=== PATIENT | female | born 1995 | race African-American/Black ===

== ENCOUNTER → 2017-02-13 | Outpatient (CLI) | payer OTHER ==
--- NOTE | 2017-02-13 16:41 | REP ---
Left foot four views: There is an intra-articular nondisplaced fracture of the base of the fifth digit distal phalange. There is no other fracture or dislocation. Mineralization joint spaces are otherwise are well. Signed by Daokta Joseph MD 02/13/2017 04:33 P
== END ==
LOC: M LRY 16:14
PROVIDERS: ATTEND Nurse Practitioner Family
DX: M79.675 Pain in left toe(s) (principal)
CPT/HCPCS: 73630; 90715; 96372; G0463; J1885

== ENCOUNTER → 2017-03-27 | Outpatient (CLI) | payer OTHER ==
--- NOTE | 2017-03-28 11:12 | REP ---
Clinical: Trauma. Technique: AP, lateral, bilateral oblique views of the right fifth digit. Findings: No acute fracture dislocation. Skeletal structures, joint spaces, surrounding soft tissues are normal. No subcutaneous emphysema or radiodense foreign body. Impression: No acute fracture dislocation. Signed by Raghavendra Osman MD 03/28/2017 08:44 A
== END ==
LOC: M LRY 20:09
PROVIDERS: ATTEND Nurse Practitioner Family
DX: S69.91XA Unspecified injury of right wrist, hand and finger(s), initial encounter (principal); X58.XXXA Exposure to other specified factors, initial encounter; Y92.89 Other specified places as the place of occurrence of the external cause; Y93.89 Activity, other specified; Y99.8 Other external cause status
CPT/HCPCS: 11730; 73140; G0463

== ENCOUNTER → 2017-06-23 | Outpatient (REF) | payer OTHER | LOC: M SFHCLERA 18:47 | PROVIDERS: ATTEND Nurse Practitioner Family | DX: J02.9 Acute pharyngitis, unspecified (principal) ==

== ENCOUNTER 2017-11-01 22:05 | Emergency (ER) | payer BC, OTHER ==
[2017-11-01 23:03] LABS: KETONE, URINE AUTO RFX NEGATIVE (NEGATIVE); LEUKOCYTE ESTERASE UR AUTO RFX NEGATIVE (NEGATIVE); MUCUS, URINE RFX SMALL (NEGATIVE); NITRITE, URINE AUTO RFX NEGATIVE (NEGATIVE); RBC, URINE AUTO RFX 2 /HPF (0-3); SPECIFIC GRAVITY UR AUTO RFX 1.025 (1.002-1.035); SQUAM EPITHELIAL CELL UR AURFX 3 /HPF (0-6); WBC, URINE AUTO RFX 1 /HPF (0-3)
[2017-11-01] MEDS: NS 1,000 ML IV ×2 (23:03)
[2017-11-01 23:33] LABS: BASO % 0.6 % (0.0-1.0); EOS # 0.2 10^3/uL (0.0-0.50); EOS % 3.1 % (0.0-3.0); HEMATOCRIT 34.4 % (36.0-47.0); IMMATURE GRANULOCYTE % 0.2 % (0-3.0); LYMPH # 1.8 10^3/uL (1.5-6.5); LYMPH % 35.5 % (24.0-44.0); MEAN CORPUSCULAR HEMOGLOBIN 27.2 pg (27.0-33.0); MEAN CORPUSCULAR VOLUME 84.9 fl (80.0-96.0); MONO # 0.3 10^3/uL (0.0-0.8); MONO % 6.6 % (0.0-5.0); NEUTROPHILS # 2.8 10^3/uL (1.8-7.7); PLATELET COUNT, AUTOMATED 290 10^3/uL (150-450); RED BLOOD COUNT 4.05 10^6/uL (4.00-5.40); RED CELL DISTRIBUTION WIDTH 13.4 % (11.5-14.5); WHITE BLOOD COUNT 5.1 10^3/uL (4.0-10.0)
[2017-11-01 23:47] LABS: CONTROL LINE HCG INT CTR LINE PRESENT; HCG, SERUM QUALITATIVE NEGATIVE (NEGATIVE)
[2017-11-01 23:48] LABS: INR 1.05; PROTHROMBIN TIME 13.8 SECONDS (12.4-14.5)
[2017-11-01 23:51] LABS: ANION GAP 5 MEQ/L (8-16); BLOOD UREA NITROGEN 11 MG/DL (7-18); CALCIUM LEVEL 8.8 MG/DL (8.5-10.1); CARBON DIOXIDE LEVEL 27 MEQ/L (21-32); CHLORIDE LEVEL 104 MEQ/L (98-107); CREATININE FOR GFR 0.68 MG/DL (0.55-1.30); GLOMERULAR FILTRATION RATE > 60.0 (>60); GLUCOSE, FASTING 77 MG/DL (70-100); POTASSIUM SERUM 3.6 MEQ/L (3.5-5.1); SODIUM LEVEL 136 MEQ/L (136-145)
== END 2017-11-02 00:04 | disposition home or self-care (01) ==
LOC: M ED 11-02 00:04
DX: E28.2 Polycystic ovarian syndrome (principal); N84.0 Polyp of corpus uteri; Z79.899 Other long term (current) drug therapy
CPT/HCPCS: 76856

== ENCOUNTER → 2018-03-27 | Outpatient (REF) | payer OTHER | LOC: M SFHCLERA 14:48 | DX: J02.9 Acute pharyngitis, unspecified (principal) ==

== ENCOUNTER 2018-07-11 18:38 | Emergency (ER) | payer BC, OTHER, SELFPAY ==
[~2018-07-11] VITALS: Ht 165.1 cm; Wt 113.6 kg
[~2018-07-11 18:38] MED LIST: METF500T4 PO
[2018-07-11 19:26] LABS: BASO % 0.4 % (0.0-1.0); EOS # 0.2 10^3/uL (0.0-0.50); EOS % 1.9 % (0.0-3.0); HEMATOCRIT 36.6 % (36.0-47.0); HEMOGLOBIN 11.9 g/dl (12.0-15.5); LYMPH # 1.8 10^3/uL (1.5-6.5); LYMPH % 22.3 % (24.0-44.0); MEAN CORPUSCULAR HEMOGLOBIN 27.8 pg (27.0-33.0); MEAN CORPUSCULAR HGB CONC 32.5 g/dl (32.0-36.5); MEAN CORPUSCULAR VOLUME 85.5 fl (80.0-96.0); MONO # 0.6 10^3/uL (0.0-0.8); NEUTROPHILS # 5.6 10^3/uL (1.8-7.7); NEUTROPHILS % 68.2 % (36.0-66.0); PLATELET COUNT, AUTOMATED 288 10^3/uL (150-450); RED BLOOD COUNT 4.28 10^6/uL (4.00-5.40); WHITE BLOOD COUNT 8.3 10^3/uL (4.0-10.0)
--- NOTE | 2018-07-11 20:21 | REPVR ---
EXAM: US First Trimester, Transabdominal and US , Transvaginal EXAM DATE/TIME: 07/11/2018 7:33 PM CLINICAL HISTORY: 23 years old, female; Pain; complicated by abdominal or pelvic pain; Lower; First trimester; Gestational age or lmp: 4w 6d; ; Additional info: Vaginal bleeding as per order but no vaginal bleeding per patient just pain TECHNIQUE: Real-time transabdominal obstetrical ultrasound of the maternal pelvis and a first trimester , less than 14 weeks 0 days, with image documentation. Transvaginal imaging was used for better evaluation of the fetus and adnexa. COMPARISON: No relevant prior studies available. FINDINGS: GESTATION: Gestation: Gestational sac demonstrated without sac size 3.0 mm. No pole demonstrated. No yolk sac demonstrated. Heart rate: Not detected. BIOMETRY: Estimated gestational age: Gestational age based on sac size is 5 weeks 1 day this patient would be 4 weeks 6 days using LMP of 06/07/2018. MATERNAL: Uterus: Uterus measures 8.8 x 4 x 1.5 cm. Cervix: Unremarkable. Right adnexa: Right ovary is enlarged measuring 7.1 x 5.3 x 6 cm. Complex cyst measuring 2.5 x 2.3 x 2.9 cm demonstrated consistent with a hemorrhagic cyst. Simple cyst measures 4.3 x 3.6 x 4.6 cm. RI 0.53. Left adnexa: Unremarkable. RI 0.56 Intraperitoneal: Free fluid as well as an apparent lucent mass mass versus bowel measuring 2.1 x 4.4 x 4.8 cm. Finding concerning for hemorrhagic fluid. IMPRESSION: Small sac demonstrated in the uterus without evidence of yolk sac or pole or cardiac activity at this time. Complex fluid in the cul-de-sac is worrisome for possible hemorrhage which could either be related to the hemorrhagic cyst in the right ovary although ectopic is not excluded. Correlation with beta hCG levels and serial ultrasounds suggested in order to exclude ectopic and to document the presence of a pole and cardiac activity. Electronically signed by: Ryan Cooper On 07/11/2018 20:20:49 PM
[2018-07-11] MEDS ORDERED: ACET500T15 PO (21:32)
[2018-07-11 21:42] VITALS: BP 121/74
[2018-07-11 22:31] LABS: CHLAMYDIA DNA AMPLIFICATION NEGATIVE (NEGATIVE); GC DNA AMPLIFICATION NEGATIVE (NEGATIVE)
== END 2018-07-11 21:43 | disposition home or self-care (01) ==
LOC: M ED 18:38
DX: O34.81 Maternal care for other abnormalities of pelvic organs, first trimester (principal); Z32.01 Encounter for pregnancy test, result positive; O24.111 Pre-existing type 2 diabetes mellitus, in pregnancy, first trimester; Z3A.01 Less than 8 weeks gestation of pregnancy; Z80.41 Family history of malignant neoplasm of ovary; Z79.84 Long term (current) use of oral hypoglycemic drugs; Z91.018 Allergy to other foods

== ENCOUNTER → 2018-07-13 | Outpatient (CLI) | payer BC, OTHER, SELFPAY ==
[~2018-07-13] MED LIST changes: +ACET1TAB55 PO; +ACET500T15 PO; +OSEL75CA PO; +ZOFR4TAB14 PO
== END ==
LOC: M LAB 12:53
PROVIDERS: ATTEND Nurse Practitioner Family
DX: Z36.89 Encounter for other specified antenatal screening (principal)

== ENCOUNTER 2018-07-26 16:22 | Emergency (ER) | payer OTHER, SELFPAY ==
[~2018-07-26] VITALS: Ht 165.1 cm; Wt 113.6 kg
[~2018-07-26 16:22] MED LIST changes: -ACET1TAB55 PO; -OSEL75CA PO; -ZOFR4TAB14 PO
[2018-07-26 17:24] LABS: BASO % 0.4 % (0.0-1.0); EOS # 0.1 10^3/uL (0.0-0.50); HEMATOCRIT 35.8 % (36.0-47.0); HEMOGLOBIN 11.8 g/dl (12.0-15.5); LYMPH # 0.5 10^3/uL (1.5-6.5); LYMPH % 6.2 % (24.0-44.0); MEAN CORPUSCULAR HEMOGLOBIN 27.8 pg (27.0-33.0); MEAN CORPUSCULAR VOLUME 84.2 fl (80.0-96.0); MONO # 0.5 10^3/uL (0.0-0.8); MONO % 6.8 % (0.0-5.0); NEUTROPHILS # 6.2 10^3/uL (1.8-7.7); NEUTROPHILS % 85.3 % (36.0-66.0); PLATELET COUNT, AUTOMATED 265 10^3/uL (150-450); RED BLOOD COUNT 4.25 10^6/uL (4.00-5.40); WHITE BLOOD COUNT 7.2 10^3/uL (4.0-10.0)
[2018-07-26 17:48] LABS: BLOOD UREA NITROGEN 8 MG/DL (7-18); CARBON DIOXIDE LEVEL 22 MEQ/L (21-32); CHLORIDE LEVEL 106 MEQ/L (98-107); CREATININE FOR GFR 0.75 MG/DL (0.55-1.30); GLOMERULAR FILTRATION RATE > 60.0 (>60); GLUCOSE, FASTING 90 MG/DL (70-100); SODIUM LEVEL 136 MEQ/L (136-145)
[2018-07-26 18:53] VITALS: BP 124/69
--- NOTE | 2018-07-26 19:55 | REPVR ---
EXAM: US First Trimester, Transabdominal EXAM DATE/TIME: 07/26/2018 6:45 PM CLINICAL HISTORY: 23 years old, female; Pain; complicated by abdominal or pelvic pain; Right lower quadrant; First trimester; Gestational age or lmp: 7 weeks 0 days; ; Additional info: Pelvic pain, 7 wks TECHNIQUE: Real-time transabdominal obstetrical ultrasound of the maternal pelvis and a first trimester , less than 14 weeks 0 days, with image documentation. COMPARISON: 1ST TRIMESTER US 07/11/2018 7:21 PM FINDINGS: GESTATION: Gestation: TransabdominalIy, there is a single intrauterine gestational sac. There is a pole with a crown-rump length measurement of 0.96 cm for a menstrual age of 7 weeks and 0 days. Endovaginally, there is a single intrauterine gestational sac with a pole measuring 1.01 cm for a menstrual age of 7 weeks and 1 day. There is yolk sac present. Heart rate: Cardiac activity is noted at a rate of 160 beats per minute. Placenta: Unremarkable. No subchorionic bleed. MATERNAL: Cervix: Unremarkable. Right adnexa: On transabdominal exam, the right ovary measures 7.2 x 5.9 x 6.4 cm and contains several follicles.The largest measures 5.5 x 4.8 x 5.1 cm. Endovaginally, the right ovary measures 8.5 x 5.6 x 6.9 cm and contains 2 dominant follicles.The largest measures 4.9 cm and is simple. The second measures 2.9 cm in diameter and contains a hypervascular rim suggesting a hemorrhagic corpus luteum cyst. Left adnexa: Transabdominally, the left ovary is not seen as a separate structure. Endovaginally, the left ovary measures 3.7 x 2.7 x 2.3 cm. Blood flow seen in the left ovary on color Doppler and pulse Doppler examination.. Intraperitoneal: Endovaginally, a small moderate free fluid is seen in the posterior cul-de-sac. IMPRESSION: 1. Single live intrauterine with an estimated menstrual age of 7 weeks and 0 days (range 6 weeks and 3 days-7 weeks and 4 days). Expected date of delivery 03/14/2019. 2.Compared to the previous ultrasound there's evidence of clot retraction in the corpus luteum cyst described above. This is evidence of a hemorrhagic cyst. Electronically signed by: Annalisa Jordan On 07/26/2018 19:55:44 PM
[2018-07-27] MEDS ORDERED: ACET1TAB55 PO (22:22)
[2018-07-27] MEDS ORDERED: OSEL75CA PO (22:22)
[2018-07-27] MEDS ORDERED: ZOFR4TAB14 PO (22:22)
== END 2018-07-26 19:52 | disposition home or self-care (01) ==
LOC: M ED 16:22
DX: O21.9 Vomiting of pregnancy, unspecified (principal); O34.81 Maternal care for other abnormalities of pelvic organs, first trimester; N83.201 Unspecified ovarian cyst, right side; Z3A.01 Less than 8 weeks gestation of pregnancy; Z87.891 Personal history of nicotine dependence

== ENCOUNTER 2018-07-27 20:47 | Emergency (ER) | payer OTHER, SELFPAY ==
[~2018-07-27] VITALS: Ht 165.1 cm; Wt 113.6 kg
[2018-07-27 21:49] LABS: INFLUENZA B AMPLIFICATION NEGATIVE (NEGATIVE)
[2018-07-27] MEDS ORDERED: OSELTAMIVIR PHOSPHATE 75 MG CAP (TAMIFLU) PO ONE (22:15)
[2018-07-27] MEDS ORDERED: ACETAMINOPHEN TAB 650MG DOSE (2X325MG) PO ONE (22:15)
[2018-07-27] MEDS ORDERED: ONDANSETRON 4 MG ORAL DISINTEGRATING TAB (Q0162 PER 1MG) PO ONE (22:15)
[2018-07-27] MEDS ORDERED: OSEL75CA PO (22:22)
[2018-07-27] MEDS ORDERED: ZOFR4TAB14 PO (22:22)
[2018-07-27] MEDS ORDERED: ACET1TAB55 PO (22:22)
[2018-07-27] MEDS ORDERED: NS 1,000 ML IV ONE (22:30)
[2018-07-27 23:30] VITALS: BP 102/52
[2018-08-06 15:49] LABS: INFLUENZA A AMPLIFICATION POSITIVE (NEGATIVE)
== END 2018-07-28 00:10 | disposition home or self-care (01) ==
LOC: M ED 20:47
DX: J09.X2 Influenza due to identified novel influenza A virus with other respiratory manifestations (principal)
CPT/HCPCS: 87502; 99284; Q0162

== ENCOUNTER 2018-08-17 12:38 | Emergency (ER) | payer BC, OTHER ==
[~2018-08-17] VITALS: Ht 165.1 cm; Wt 48.1 kg
[2018-08-17 12:38] VITALS: BP 137/76
[~2018-08-17 12:38] MED LIST changes: +ACET1TAB55 PO; +OSEL75CA PO; +ZOFR4TAB14 PO
[2018-08-17 13:57] LABS: BASO % 0.4 % (0.0-1.0); EOS # 0.1 10^3/uL (0.0-0.50); EOS % 1.3 % (0.0-3.0); HEMATOCRIT 32.3 % (36.0-47.0); HEMOGLOBIN 10.8 g/dl (12.0-15.5); LYMPH # 1.3 10^3/uL (1.5-6.5); LYMPH % 16.8 % (24.0-44.0); MEAN CORPUSCULAR HEMOGLOBIN 27.5 pg (27.0-33.0); MEAN CORPUSCULAR HGB CONC 33.4 g/dl (32.0-36.5); MEAN CORPUSCULAR VOLUME 82.2 fl (80.0-96.0); MONO # 0.6 10^3/uL (0.0-0.8); MONO % 7.5 % (0.0-5.0); NEUTROPHILS # 5.6 10^3/uL (1.8-7.7); NEUTROPHILS % 73.7 % (36.0-66.0); PLATELET COUNT, AUTOMATED 242 10^3/uL (150-450); RED BLOOD COUNT 3.93 10^6/uL (4.00-5.40); WHITE BLOOD COUNT 7.6 10^3/uL (4.0-10.0)
--- NOTE | 2018-08-17 14:17 | REP ---
Clinical: Dating and viability. Technique: Transabdominal first trimester obstetrical ultrasound with color Doppler evaluation. Findings: Single live early intrauterine is appreciated. Gestational sac with yolk sac and pole identified. [place]-rump length of 34 mm corresponds to 10 weeks 2 days gestational age with estimated date of delivery 03/13/2019 . heart rate equals 168 beats per minute. No gross abnormalities are identified. Left maternal ovary is normal in appearance and vascularity without torsion measuring 3.7 x 3.0 x 2.4 cm; RI 0.51. Right maternal ovary measures 8.7 x 6.1 x 7.9 cm and includes two cysts measuring approximately 5.4 and 3.1 cm maximal diameter each and without evidence for torsion; RI 0.34. Impression: 1. Single live early intrauterine at 10 weeks 2 days gestational age. Complete anatomical assessment should be performed and 19-20 weeks. 2. Two maternal right ovarian cysts one of which likely represents corpus luteum. No evidence for ovarian torsion. Electronically Signed by Raghavendra Osman MD 08/17/2018 02:09 P
== END 2018-08-17 15:21 | disposition home or self-care (01) ==
LOC: M ED 12:38
DX: O20.8 Other hemorrhage in early pregnancy (principal); O34.81 Maternal care for other abnormalities of pelvic organs, first trimester; Z3A.10 10 weeks gestation of pregnancy; Z91.018 Allergy to other foods

== ENCOUNTER 2018-10-06 16:00 | Emergency (ER) | payer BC, OTHER ==
[~2018-10-06] VITALS: Ht 165.1 cm; Wt 102.7 kg
[2018-10-06] MEDS ORDERED: FIOR1CAP PO (16:06)
[2018-10-06] MEDS ORDERED: PRENTAB55 (16:06)
[2018-10-06 16:53] LABS: BASO % 0.4 % (0.0-1.0); EOS # 0.3 10^3/uL (0.0-0.50); EOS % 3.4 % (0.0-3.0); HEMATOCRIT 30.5 % (36.0-47.0); HEMOGLOBIN 10.1 g/dl (12.0-15.5); LYMPH # 1.2 10^3/uL (1.5-6.5); LYMPH % 14.3 % (24.0-44.0); MEAN CORPUSCULAR HEMOGLOBIN 28.3 pg (27.0-33.0); MEAN CORPUSCULAR HGB CONC 33.1 g/dl (32.0-36.5); MEAN CORPUSCULAR VOLUME 85.4 fl (80.0-96.0); MONO # 0.6 10^3/uL (0.0-0.8); MONO % 6.8 % (0.0-5.0); NEUTROPHILS # 6.4 10^3/uL (1.8-7.7); NEUTROPHILS % 74.6 % (36.0-66.0); PLATELET COUNT, AUTOMATED 248 10^3/uL (150-450); RED BLOOD COUNT 3.57 10^6/uL (4.00-5.40); WHITE BLOOD COUNT 8.6 10^3/uL (4.0-10.0)
[2018-10-06 17:14] LABS: BLOOD UREA NITROGEN 6 MG/DL (7-18); CALCIUM LEVEL 8.6 MG/DL (8.5-10.1); CARBON DIOXIDE LEVEL 22 MEQ/L (21-32); CHLORIDE LEVEL 109 MEQ/L (98-107); CREATININE FOR GFR 0.46 MG/DL (0.55-1.30); GLOMERULAR FILTRATION RATE > 60.0 (>60); GLUCOSE, FASTING 75 MG/DL (70-100); SODIUM LEVEL 138 MEQ/L (136-145)
--- NOTE | 2018-10-06 17:51 | REP ---
OB ULTRASOUND: Real-time sonographic evaluation of the gravid uterus is performed. There is a single living intrauterine gestation. The estimated gestational age is 17 weeks 2 days based on LMP with EDC 03/14/2019. Today's measurements indicate appropriate growth. BPD 35 mm = 16 weeks 5 days, at the 27th percentile. HC 131 mm = 16 weeks 5 days, at the 29th percentile. AC 109 mm = 16 weeks 5 days, at the 36th percentile. Femur length 27 mm = 18 weeks 1 days, at the 72nd percentile. HC/AC ratio 1.16 within normal range. Estimated weight 191 grams, 48th percentile. Cervix is closed measures 4.7 cm in length. heart rate 149 beats per minute. Visualized anatomy today includes lateral ventricles, stomach, cord insertion and three vessel cord. position is breech. Placenta is posterior with no abruption or previa, amniotic fluid within normal limits. Cystic structure of the right ovary measures 2.9 cm and may represent a corpus luteum. Electronically Signed by Dakota Zavala MD 10/07/2018 01:30 P
[2018-10-06 17:52] VITALS: BP 125/59
== END 2018-10-06 17:54 | disposition home or self-care (01) ==
LOC: M ED 16:00
DX: O26.892 Other specified pregnancy related conditions, second trimester (principal); R10.2 Pelvic and perineal pain; O99.282 Endocrine, nutritional and metabolic diseases complicating pregnancy, second trimester; E86.0 Dehydration; Z3A.17 17 weeks gestation of pregnancy; Z91.018 Allergy to other foods

== ENCOUNTER → 2018-10-21 | Outpatient (CLI) | payer BC, OTHER ==
[~2018-10-21] MED LIST changes: +FIOR1CAP PO; +IBUP-1114 PO; +MAPA500T2 PO; +PRENTAB55
--- NOTE | 2018-10-21 13:45 | ECGEPIP ---
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
== END ==
LOC: M EKG 13:20
PROVIDERS: ATTEND Midwife
DX: E11.9 Type 2 diabetes mellitus without complications (principal); O24.12 Pre-existing type 2 diabetes mellitus, in childbirth; Z3A.18 18 weeks gestation of pregnancy

== ENCOUNTER 2018-10-27 19:25 | Inpatient (IN) | payer BC, OTHER ==
[~2018-10-27] VITALS: Ht 165.1 cm; Wt 102.6 kg
[~2018-10-27 19:25] MED LIST changes: -IBUP-1114 PO; -MAPA500T2 PO
[2018-10-27 20:27] LABS: APPEARANCE, URINE HAZY (CLEAR); BACTERIA, URINE AUTO 1+ (NEGATIVE); BILIRUBIN, URINE AUTO NEGATIVE (NEGATIVE); BLOOD, URINE BLOOD NEGATIVE (NEGATIVE); COLOR, URINE YELLOW (YELLOW); GLUCOSE, URINE (UA) AUTO NEGATIVE (NEGATIVE); KETONE, URINE AUTO 2+ mg/dL (NEGATIVE); LEUKOCYTE ESTERASE, URINE AUTO TRACE (NEGATIVE); MUCUS, URINE LARGE (NEGATIVE); NITRITE, URINE AUTO NEGATIVE (NEGATIVE); PROTEIN, URINE AUTO 1+ mg/dL (NEGATIVE); RBC, URINE AUTO 0 /HPF (0-3); SQUAMOUS EPITHELIAL CELL UR AU 2 /HPF (0-6); UROBILINOGEN, URINE AUTO 0.2 mg/dL (0.0-2.0); WBC, URINE AUTO 6 /HPF (0-3)
[2018-10-27] MEDS ORDERED: LR 1,000 ML IV SCH (22:08)
[2018-10-27] MEDS ORDERED: LACTATED RINGER'S 1000 ML IV STA (22:08)
[2018-10-27] MEDS ORDERED: BUTORPHANOL 2 MG/ML INJ (J0595) IV PRN (22:15)
[2018-10-27] MEDS ORDERED: PROMETHAZINE INJ 25 MG/ML VIAL (J2550) IV PRN (22:15)
--- NOTE | 2018-10-27 22:50 | HPEPDOC ---
Obstetrical History & Physical General Date of Admission History of Present Illness Called by MAJ Dmitriy CNM with report of previable labor and a bulging amniotic sac in the vagina in regards to a patient she had evaluated on L&D. I presented to L&D to evaluate the patient. Ms. Mallory is a 23 yo at 20+2 weeks gestation by LMP of 07Jun2018 c/w 8+4 week US on 06Aug2018 presented to L&D with the complaint of vaginal discharge, spotting, and rhythmic abdominal pain starting yesterday and worsening throughout the day. Her is complicated by Class B DM (not on medication, just recently diagnosed by abnormal early glucose screening in ) and obesity. 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: Human papillomavirus(HPV) (History of HPV) Past Medical History Medical History Obesity Class B DM Surgical History: Dilatation and Curettage (For uterine polyps) Family History Significant Family History: No pertinent family hx Family History Noncontributory Social History Marital Status: Family situation: Spouse/partner home Psychosocial History: No pertinent psych hx * Smoker: non-smoker Alcohol: Denies Drugs: denies Imunizations Tdap status: needs Influenza Status: needs Allergies Coded Allergies: Patrick (Verified Allergy, Intermediate, rash, 11/01/17) Medications Scheduled Butalb/Acetaminophen/Caffeine (Fioricet 50-300-40 mg Capsule) 1 Cap Cap, 1 CAP PO BIDP Miscellaneous Medications [id number]/Iron Fum/Folic/Docusate ( 19 Tablet) 1 Tab Tab Physical Examination Physical Examination Chaperoned by Collette Chavez GENERAL: Alert and oriented times three. ABDOMEN: Gravid and non-tender to touch. Contractions felt with palpation. No fundal tenderness between contractions. FETUS: Is vertex (VTX) bedside TAUS EXTREMITIES: No edema. Speculum exam: Normal external female genitalia. Speculum placed into the vagina. Cervix with advanced dilation and effacement. Bulging amniotic sac through the cervix. Swabs obtained for cultures. No digital exam done. Bedside TAUS: Viable SIUP. +FCA measured in the 140s. Cephalic presenting . Posterior placenta. No previa. Laboratory Data 24H [facility] Laboratory Tests 2 10/27/18 19:53: Urine Appearance HAZY, Urine Color YELLOW, Urine pH 5.0, Urine Specific [place] 1.030, Urine Protein 1+H, Urine Glucose (UA) NEGATIVE, Urine Ketones 2+H, Urine Urobilinogen 0.2, Urine Bilirubin NEGATIVE, Urine Leukocyte Esterase TRACEH, Urine Blood NEGATIVE, Urine Nitrite NEGATIVE, Urine WBC (Auto) 6H, Urine RBC (Auto) 0, Urine Hyaline Casts (Auto) 0, Urine Bacteria (Auto) 1+H, Urine Squamous Epithelial Cells 2, Urine Mucus (Auto) LARGE, Urine Sperm (Auto) Microbiology Microbiology 10/27/18 Urine Culture, Received Pending Urine Culture: Contaminated Pertinent Laboratoy Data Blood Type: A+ RBC Antibody Screen: Negative HIV: Negative Hepatitis B: Negative Hepatitis C: Unknown Rapid Plasma Reagin: Nonreactive Rubella: Immune Varicella: Nonreactive Chlamydia/Gonorrhea: Negative Group B Streptococcus: Negative Quad Screen Test: Unknown Cystic Fibrosis: Unknown Glucose Tolerance Test: 179 (early 1hr 179, abnormal 3hr with two values >200 rling in for pre exisiting DM) Anatomy Ultrasound Ultrasound Date: Oct 26, 2018 Placenta Location: Posterior Normal Anatomy: Yes (Normal anatomy but suboptimal view of bladder and cord insertion site) Placenta Previa: No Steroid Therapy Steroid Therapy: No Vaginal Examination Dilation: 5 cm (Visibly 5cm dilated and 100% effaced. No digital exam performed.) Effacement: 100% Station: -1 Cervical Consistency: Soft (Appears soft and anterior ) Cervical Position: Anterior Presentation: Cephalic presentation (Cephalic by TAUS) Position: Vertex (occiput) Assessment Heart Rate (FHR): 140 Tocometer Contractions: Yes Frequency: regular Duration: less than 60 seconds Strength: palpated as moderate Assessment/Plan Assessment 23 yo at 20+2 weeks gestation presents in previable labor. Plan Admit and Apply IV fluids. I had a long discussion with Ms. [place] regarding the poor prognosis of active labor at this gestational age. I discussed with her that no interventions can be done to improve the prognosis. She is likely in fulminant labor ( anatomy scan measured maternal cervix 4.4cm just yesterday) and given her bulging membranes, completely effaced cervix, and contractions, she would not be a candidate for cerclage placement. I discussed with her the plan moving forward will be expectant management and pain control. Should her fetus in utero, or if she develops signs of life threatening infection, I would recommend proceeding with augmentation for delivery. I discussed with her that her baby may be alive for a short time after delivery, but that it would not survive. She also understands that no resuscitative measures will be performed, only comfort care. All patient questions were answered and she appears to be understand. IV analgesia PRN. Consider Epidural as desired. DO LEXUS Lopez CHRISTOPHER J. DO Oct 27, 2018 22:50
[2018-10-27 23:13] LABS: BASO % 0.1 % (0.0-1.0); EOS % 0.1 % (0.0-3.0); HEMATOCRIT 30.3 % (36.0-47.0); HEMOGLOBIN 9.9 g/dl (12.0-15.5); LYMPH # 0.6 10^3/uL (1.5-6.5); LYMPH % 4.3 % (24.0-44.0); MEAN CORPUSCULAR HEMOGLOBIN 28.6 pg (27.0-33.0); MEAN CORPUSCULAR HGB CONC 32.7 g/dl (32.0-36.5); MEAN CORPUSCULAR VOLUME 87.6 fl (80.0-96.0); MONO # 0.7 10^3/uL (0.0-0.8); MONO % 4.6 % (0.0-5.0); NEUTROPHILS # 13.4 10^3/uL (1.8-7.7); NEUTROPHILS % 90.5 % (36.0-66.0); PLATELET COUNT, AUTOMATED 223 10^3/uL (150-450); RED BLOOD COUNT 3.46 10^6/uL (4.00-5.40); WHITE BLOOD COUNT 14.8 10^3/uL (4.0-10.0)
[2018-10-27] MEDS ORDERED: OXYTOCIN 30 UNITS IN 0.9% NaCl 500ML IV BAG (J2590) As Ordered ONE (23:28)
[2018-10-27] MEDS ORDERED: MORPHINE 10 MG/ML 1ML VIAL (J2270) As Ordered ONE (23:48)
[2018-10-28] VITALS (7 sets, daily range): BP systolic 99–131; BP diastolic 55–70
[2018-10-28] MEDS ORDERED: miSOPROStol 200 MCG TAB (S0191) PR ONE
[2018-10-28] MEDS ORDERED: MORPHINE 10 MG/ML 1ML VIAL (J2270) IV ONE
[2018-10-28] MEDS ORDERED: OXYTOCIN DRIP 30 UNITS in APPROPRIATE DILUENT 1 EA IV SCH (00:02)
[2018-10-28] MEDS ORDERED: DIBUCAINE 1% OINTMENT 30GM TOP PRN (00:15)
[2018-10-28] MEDS ORDERED: IBUPROFEN 800 MG TAB PO PRN (00:15)
[2018-10-28] MEDS ORDERED: ACETAMINOPHEN 500 MG TAB PO PRN (00:15)
[2018-10-28] MEDS ORDERED: MEASLES,MUMPS,RUBELLA VACCINE INJ (MMR-II) (90707) SC SCH (00:15)
[2018-10-28] MEDS ORDERED: ONDANSETRON 4MG/2ML VIAL (J2405) IV PRN (00:15)
[2018-10-28] MEDS ORDERED: RHOGAM 300 MCG (1500 IU) INJ (J2790) IM SCH (00:15)
[2018-10-28] MEDS ORDERED: DOCUSATE SODIUM 100 MG CAP PO PRN (00:15)
--- NOTE | 2018-10-28 00:19 | DNPDOC ---
[facility] Delivery Note Delivery Note DATE OF DELIVERY: [id number] just before midnight PREDELIVERY DIAGNOSIS: 20+2 weeks gestation and previable labor POST DELIVERY DIAGNOSIS: Delivered. Placental abruption. 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 Castellano ANESTHESIA: IV stadol and morphine. ESTIMATED BLOOD LOSS: 300 mL. FINDINGS: Grossly normal appearing female fetus other than erythema/bruising noted along skull. Low heart rate continued after delivery. Placenta macerated and an abruption was identified. DELIVERY SUMMARY: Ms. Mallory was admitted in previable, fulminant labor. She received IV stadol for analgesia. Shortly after admission her amniotic sac ruptured spontaneously. Soon thereafter, she was feeling pelvic pressure and an urge to push. On exam the head was in the vagina. She was prepped for delivery. She pushed well and the infant delivered after two sets of pushes. presentation was cephalic, and after head delivery the rest of the body followed immediately. tone was present with delivery along with a low heart rate. I cut the cord and wrapped the baby in cloths. The awaiting baby nurse then took the baby as mother and father were not yet ready to hold. The umbilical cord avulsed after delivery and the placenta was detached but caught in the lower uterine segment. I administered 10mg IV morphine and 600mcg cytotec MA. I then manually extracted the placenta from the lower uterine segment completely intact. Pitocin was then administered IV bolus. The uterine fundus was firm and bleeding was minimal. Inspection of the vagina and perineum revealed no lacerations. Sponge and instrument counts were correct X2. Mother stable when I left the room. Will give dose of ancef for uterine sweep. DO LEXUS Lopez CHRISTOPHER J. DO Oct 28, 2018 00:19
[2018-10-28] MEDS ORDERED: PRENATAL VITAMINS CHEWABLE TABLET PO SCH (09:00)
[2018-10-28] MEDS ORDERED: IBUP-1114 PO (17:27)
[2018-10-28] MEDS ORDERED: MAPA500T2 PO (17:27)
== END 2018-10-28 18:30 | disposition home or self-care (01) | DRG 541 ==
LOC: M LDO 19:25 → M LDI 22:51
PROVIDERS: ADMIT Obstetrics & Gynecology; ATTEND Midwife
PROC: 10E0XZZ Delivery of Products of Conception, External Approach (ICD-10-PCS; principal; 2018-10-27)
PROC: 10D17Z9 Manual Extraction of Products of Conception, Retained, Via Natural or Artificial Opening (ICD-10-PCS; 2018-10-27)
DX: O45.8X2 Other premature separation of placenta, second trimester (principal); Z37.0 Single live birth; Z3A.20 20 weeks gestation of pregnancy; O69.89X0 Labor and delivery complicated by other cord complications, not applicable or unspecified; O73.0 Retained placenta without hemorrhage; O24.812 Other pre-existing diabetes mellitus in pregnancy, second trimester

== ENCOUNTER → 2018-12-01 | Outpatient (REF) | payer BC, OTHER ==
[~2018-12-01] MED LIST changes: +IBUP-1114 PO; +MAPA500T2 PO
== END ==
LOC: M SFHCLERA 11:26
PROVIDERS: ATTEND Physician Assistant
DX: R30.9 Painful micturition, unspecified (principal)
CPT/HCPCS: 81002; 81025; 87070; 87077; 87086; G0463

== ENCOUNTER 2019-07-27 17:30 | Emergency (ER) | payer BC, OTHER ==
[~2019-07-27] VITALS: Ht 165.1 cm; Wt 114.6 kg
[~2019-07-27 17:30] MED LIST changes: +METF-791 PO; -METF500T4 PO
[2019-07-27 19:56] LABS: BASO # 0.1 10^3/uL (0.0-0.2); BASO % 0.6 % (0.0-1.0); EOS # 0.3 10^3/uL (0.0-0.5); EOS % 4.1 % (0.0-3.0); HEMATOCRIT 37.2 % (36.0-47.0); HEMOGLOBIN 11.5 g/dl (12.0-15.5); LYMPH # 2.2 10^3/uL (1.5-5.0); LYMPH % 27.7 % (24.0-44.0); MEAN CORPUSCULAR HEMOGLOBIN 26.9 pg (27.0-33.0); MEAN CORPUSCULAR HGB CONC 30.9 g/dl (32.0-36.5); MEAN CORPUSCULAR VOLUME 87.1 fl (80.0-96.0); MONO # 0.5 10^3/uL (0.0-0.8); MONO % 6.5 % (0.0-5.0); NEUTROPHILS # 4.8 10^3/uL (1.5-8.5); NEUTROPHILS % 60.8 % (36.0-66.0); PLATELET COUNT, AUTOMATED 287 10^3/uL (150-450); RED BLOOD COUNT 4.27 10^6/uL (4.00-5.40); WHITE BLOOD COUNT 7.9 10^3/uL (4.0-10.0)
[2019-07-27 20:27] LABS: ALBUMIN 3.6 GM/DL (3.2-5.2); ALT/SGPT 17 U/L (12-78); BILIRUBIN,DIRECT 0.1 MG/DL (0.0-0.2); BILIRUBIN,TOTAL 0.4 MG/DL (0.2-1.0); BLOOD UREA NITROGEN 10 MG/DL (7-18); CALCIUM LEVEL 8.8 MG/DL (8.5-10.1); CARBON DIOXIDE LEVEL 26 MEQ/L (21-32); CHLORIDE LEVEL 108 MEQ/L (98-107); CREATININE FOR GFR 0.79 MG/DL (0.55-1.30); GLOMERULAR FILTRATION RATE > 60.0 (>60); GLUCOSE, FASTING 82 MG/DL (70-100); LIPASE 103 U/L (73-393); POTASSIUM SERUM 3.9 MEQ/L (3.5-5.1); SODIUM LEVEL 138 MEQ/L (136-145); TOTAL PROTEIN 7.3 GM/DL (6.4-8.2)
[2019-07-27 20:28] LABS: HCG, SERUM QUALITATIVE POSITIVE (NEGATIVE)
[2019-07-27 22:13] LABS: HCG, SERUM QUANTITATIVE 10819 MIU/ML
--- NOTE | 2019-07-27 23:28 | REPVR ---
PROCEDURE INFORMATION: Exam: US First Trimester, Transabdominal Exam date and time: 07/27/2019 10:47 PM Age: 24 years old Clinical indication: complicated by abdominal or pelvic pain; Lower; First trimester; Gestational age or lmp: 5w6d; ; Additional info: Pelvic pain, positive hcg TECHNIQUE: Imaging protocol: Real-time transabdominal obstetrical ultrasound of the maternal pelvis and a first trimester , less than 14 weeks 0 days, with image documentation. COMPARISON: No relevant prior studies available. FINDINGS: GESTATION: Gestation: Gestational sac within the body of the uterus containing a yolk sac. No pole is seen at this time. BIOMETRY: Estimated gestational age: Mean sac size is 1.1 cm suggesting an age of 5 weeks 6 days. MATERNAL: Uterus: The uterus measures 9.3 cm in its cephalocaudad dimension and 5.5 x 6.3 cm in its AP and lateral dimensions. Cervix: Unremarkable. Right adnexa: The right ovary measures 9.4 x 4.0 x 7.0 cm and demonstrates a large simple appearing cyst measuring 5.6 x 7.6 x 5.6 cm. Right ovarian arterial and venous blood flow was noted. Left adnexa: The left ovary measures 3.7 x 2.5 x 2.6 cm and demonstrates arterial and venous blood flow. Intraperitoneal: No intraperitoneal free fluid. IMPRESSION: 1. Gestational sac with yolk sac but no pole at this time. Sac size suggests an age of 5 weeks 6 days. Followup in 1-2 weeks may be of benefit for further evaluation. 2. Large simple appearing right ovarian cyst measuring 5.6 x 7.6 x 5.6 cm. Electronically signed by: Kumar Metz On 07/27/2019 23:28:16 PM
[2019-07-27 23:33] LABS: CHLAMYDIA DNA AMPLIFICATION NEGATIVE (NEGATIVE); GC DNA AMPLIFICATION NEGATIVE (NEGATIVE)
[2019-07-28] MEDS ORDERED: METR0.7533 TOP
[2019-07-28 00:17] VITALS: BP 137/76
== END 2019-07-28 00:19 | disposition home or self-care (01) ==
LOC: M ED 17:30
DX: O23.591 Infection of other part of genital tract in pregnancy, first trimester (principal); O26.891 Other specified pregnancy related conditions, first trimester; O99.281 Endocrine, nutritional and metabolic diseases complicating pregnancy, first trimester; E28.2 Polycystic ovarian syndrome; N89.8 Other specified noninflammatory disorders of vagina; Z3A.01 Less than 8 weeks gestation of pregnancy; Z91.018 Allergy to other foods

== ENCOUNTER 2019-09-13 17:17 | Emergency (ER) | payer BC, OTHER ==
[~2019-09-13] VITALS: Ht 165.1 cm; Wt 110.9 kg
[~2019-09-13 17:17] MED LIST changes: +METR0.7533 TOP
[2019-09-13 19:12] LABS: BASO % 0.3 % (0.0-1.0); EOS # 0.2 10^3/uL (0.0-0.5); HEMATOCRIT 32.3 % (36.0-47.0); HEMOGLOBIN 10.6 g/dl (12.0-15.5); LYMPH # 1.2 10^3/uL (1.5-5.0); LYMPH % 19.6 % (24.0-44.0); MEAN CORPUSCULAR HEMOGLOBIN 27.7 pg (27.0-33.0); MEAN CORPUSCULAR HGB CONC 32.8 g/dl (32.0-36.5); MEAN CORPUSCULAR VOLUME 84.6 fl (80.0-96.0); MONO # 0.4 10^3/uL (0.0-0.8); MONO % 5.9 % (0.0-5.0); NEUTROPHILS # 4.2 10^3/uL (1.5-8.5); NEUTROPHILS % 70.9 % (36.0-66.0); PLATELET COUNT, AUTOMATED 252 10^3/uL (150-450); RED BLOOD COUNT 3.82 10^6/uL (4.00-5.40)
[2019-09-13 19:53] LABS: BLOOD UREA NITROGEN 8 MG/DL (7-18); CALCIUM LEVEL 9.3 MG/DL (8.5-10.1); CARBON DIOXIDE LEVEL 26 MEQ/L (21-32); CHLORIDE LEVEL 107 MEQ/L (98-107); CREATININE FOR GFR 0.67 MG/DL (0.55-1.30); GLOMERULAR FILTRATION RATE > 60.0 (>60); GLUCOSE, FASTING 84 MG/DL (70-100); HCG, SERUM QUANTITATIVE 34201 MIU/ML; SODIUM LEVEL 137 MEQ/L (136-145)
--- NOTE | 2019-09-13 20:48 | REPVR ---
PROCEDURE INFORMATION: Exam: US First Trimester, Transabdominal and US , Transvaginal Exam date and time: 09/13/2019 7:44 PM Age: 24 years old Clinical indication: Lmp or gestational age (in weeks): 12w 5d; Antepartum complications; Bleeding; ; Additional info: Bleeding, 12 wks TECHNIQUE: Imaging protocol: Real-time transabdominal obstetrical ultrasound of the maternal pelvis and a first trimester , less than 14 weeks 0 days, with image documentation. Transvaginal imaging was used for better evaluation of the fetus and adnexa. COMPARISON: No relevant prior images available. FINDINGS: GESTATION: Gestation: A single intrauterine gestational sac is identified, with pole. Evaluation of anatomy is limited by age. Heart rate: heart motion is visualized, with a heart rate of 157 BPM. Placenta: The placenta is posterior. Amniotic fluid: Amniotic fluid subjectively normal for gestational age. BIOMETRY: Estimated gestational age: The estimated gestational age is 12 weeks 3 days. [place]-Rump length: The crown-rump length is 5.9 cm. Estimated due date: The estimated date of delivery is 03/24/2020. MATERNAL: Uterus: No uterine mass visualized. Cervix: Minimal fluid is identified within the endocervical canal. Hypoechoic small nabothian cysts are identified within the cervix. The cervical length is 3.0-3.5 cm. Right adnexa: The right ovary measures 10.5 x 5.8 x 9.5 cm. A right ovarian cyst is identified measuring 6.4 x 7.2 x 5.5 cm. Left adnexa: The left ovary measures 3.3 x 3.2 x 3.6 cm. Small left ovarian follicles identified. Intraperitoneal: No intraperitoneal free fluid. IMPRESSION: 1. A single viable intrauterine fetus is identified. 2. Minimal fluid is identified within the endocervical canal. 3. A right ovarian cyst is identified measuring 6.4 x 7.2 x 5.5 cm. The previous ultrasound report from 07/27/2019 described a right ovarian cyst measuring 5.6 x 7.6 x 5.6 cm. 4. Follow-up ultrasonography recommended for evaluation of anatomy. Electronically signed by: Jonathan Hirsch On 09/13/2019 20:47:44 PM
[2019-09-13 21:05] LABS: CHLAMYDIA DNA AMPLIFICATION NEGATIVE (NEGATIVE); GC DNA AMPLIFICATION NEGATIVE (NEGATIVE)
[2019-09-13 21:35] VITALS: BP 106/51
--- NOTE | 2019-09-14 16:23 | ED PDOC ---
Post-Departure Follow-Up ft suyapa ob and fp faxed formal report of ob us for [facility] Cathi Pyle MD Sep 14, 2019 16:23
== END 2019-09-13 21:38 | disposition home or self-care (01) ==
LOC: M ED 17:17
DX: O20.0 Threatened abortion (principal); O99.89 Other specified diseases and conditions complicating pregnancy, childbirth and the puerperium; E28.2 Polycystic ovarian syndrome; O99.211 Obesity complicating pregnancy, first trimester; Z3A.12 12 weeks gestation of pregnancy; Z91.018 Allergy to other foods; Z87.42 Personal history of other diseases of the female genital tract; Z84.2 Family history of other diseases of the genitourinary system; Z86.19 Personal history of other infectious and parasitic diseases